=== PATIENT | male | born 1960 | race American Indian/Alaskan Native ===

== ENCOUNTER 2017-06-13 23:13 | Emergency (ER) | payer MEDICAID ==
[2017-06-13 23:22] VITALS: BP 131/70; PULSE 62; RESP 18; TEMP 97.6; O2SAT 98
[2017-06-14] MEDS ORDERED: Lidocaine Hydrochloride 5 ML INJ ONE (00:35)
[2017-06-14] MEDS ORDERED: Bacitracin 500 Units/gm Oint Foilpak UD ONE (01:14)
--- NOTE | 2017-06-14 01:16 | C.PDOC ---
History Of Present Illness 57 year old male who presents to the ER after he fell while going down the escalator and suffered two lacerations to the left knee. Denies head injury, weakness, or numbness. Time Seen by Provider: 06/13/17 23:26 Chief Complaint (Nursing): Lower Extremity Problem/Injury History Per: Patient History/Exam Limitations: no limitations Onset/Duration Of Symptoms: Hrs Current Symptoms Are (Timing): Still Present Recent travel outside of the [place]: No - Knee Description Of Injury: Laceration Past Medical History Reviewed: Historical Data, Nursing Documentation, Vital Signs Vital Signs: Last Vital Signs Temp 97.6 F 06/13/17 23:19 Pulse 62 06/13/17 23:19 Resp 18 06/13/17 23:19 BP 131/70 06/13/17 23:19 Pulse Ox 98 06/14/17 05:22 - Medical History PMH: No Chronic Diseases Surgical History: No Surg Hx Family History: States: Unknown Family Hx - Social History Hx Alcohol Use: No Hx Substance Use: No Review Of Systems Musculoskeletal: Positive for: Leg Pain Skin: Positive for: Other (Laceration) Neurological: Negative for: Weakness, Numbness Physical Exam - Physical Exam Appears: Non-toxic, No Acute Distress Skin: Warm, Dry Head: Atraumatic, Normacephalic Oral Mucosa: Moist Extremity: Normal ROM (x4), No Tenderness, No Deformity, No Swelling, Other ( 2cm stellate laceration to the left anterior knee. 3cm linear laceration to the left anterior knee. No effusion.) Pulses: Left Dorsalis Pedis: Normal, Right Dorsalis Pedis: Normal Neurological/Psych: Oriented x3, Normal Speech, Normal Cognition, Normal Motor, Normal Sensation ED Course And Treatment O2 Sat by Pulse Oximetry: 98 (Room air) Pulse Ox Interpretation: Normal Progress Note: Left knee x-ray ordered. Motrin administered. Patient tolerated laceration repair without difficulty; patient given proper wound care instructions and instructed to follow up for suture removal. Laceration - Laceration Repair Left knee(Stellate) Wound Length (In cm): 2 Description Of Wound: Stellate Wound Cleansed With: Sterile Saline Anesthesia: Lidocaine 1% Wound Examination: Irrigated With Saline, No FB With Wound Exploration Wound Closure: Suture (x6) Suture Technique And Material Used: Nylon (3-0) Wound Complexity: Simple Left knee(Linear) Wound Length (In cm): 3 Description Of Wound: Linear Wound Cleansed With: Sterile Saline Anesthesia: Lidocaine 1%, Lidocaine 2% Wound Examination: Irrigated With Saline Wound Closure: Suture (x6) Suture Technique And Material Used: Nylon (3-0) Wound Complexity: Simple (well tolerared by pt) Disposition Counseled Patient/Family Regarding: Diagnosis, Need For Followup, Rx Given - Disposition Disposition: HOME/ ROUTINE Disposition Time: 01:13 Condition: STABLE Additional Instructions: SUTURE REMOVAL IN 14 D Prescriptions: Bacitracin Ointment [Bacitracin] 30 gm TOP BID #1 tube Cephalexin [cephalexin] 500 mg PO QID #28 cap Ibuprofen [Motrin] 600 mg PO Q6H #20 tab Instructions: Care For Your Stitches (ED) Forms: [facility] (Welsh) - Clinical Impression Clinical Impression: Laceration of knee, left - Scribe Statement The provider has reviewed the documentation as recorded by the Scriblakia Ayon All medical record entries made by the Scribe were at my direction and personally dictated by me. I have reviewed the chart and agree that the record accurately reflects my personal performance of the history, physical exam, medical decision making, and the department course for this patient. I have also personally directed, reviewed, and agree with the discharge instructions and disposition.
--- NOTE | 2017-06-14 08:08 | RAD ---
PROCEDURE: Left Knee Radiographs. HISTORY: Pain. COMPARISON: None. FINDINGS: BONES: No evidence of acute fracture or dislocation. Well corticated small ossicles seen at the medial aspect of the distal left femur adjacent to the medial femoral condyle of uncertain etiology may represent calcified soft tissue. JOINTS: Mild osteoarthritic changes. JOINT EFFUSION: None. OTHER FINDINGS: None. IMPRESSION: No radiographic evidence of acute fracture or dislocation. Possible soft tissue calcification at the medial aspect of the knee adjacent to the medial femoral condyle. Mild osteoarthritic changes.
== END 2017-06-14 01:21 | disposition home or self-care (01) ==
LOC: C.ER 23:13
DX: S81.012A Laceration without foreign body, left knee, initial encounter (principal); W10.0XXA Fall (on)(from) escalator, initial encounter

== ENCOUNTER 2017-07-02 10:54 | Emergency (ER) | payer MEDICAID ==
[2017-07-02 11:00] VITALS: BP 127/83; PULSE 63; RESP 18; TEMP 97.4; O2SAT 99
[2017-07-02] MEDS ORDERED: Bacitracin 500 Units/gm Oint Foilpak UD ONE (11:34)
--- NOTE | 2017-07-02 11:37 | C.PDOC ---
History Of Present Illness 57yo male with no past medical history, presents to the ED for suture removal from his left kneecap. Patient reports he fell on and sustained an angular laceration on the dorsum of his left knee for which he received surgery. He denies any fever, chills, swelling or discharge from the suture site. Patient offers no other medical complaints. Time Seen by Provider: 07/02/17 11:23 Chief Complaint (Nursing): Suture/Staple Removal History Per: Patient History/Exam Limitations: no limitations Onset/Duration Of Symptoms: Days Ago Current Symptoms Are (Timing): Still Present Location Of Injury: Left: Knee Quality Of Symptoms: denies: Swollen, Draining Past Medical History Reviewed: Historical Data, Nursing Documentation, Vital Signs Vital Signs: Last Vital Signs Temp 97.4 F L 07/02/17 10:59 Pulse 63 07/02/17 10:59 Resp 18 07/02/17 10:59 BP 127/83 07/02/17 10:59 Pulse Ox 99 07/02/17 11:42 - Medical History PMH: No Chronic Diseases Surgical History: No Surg Hx Family History: States: No Known Family Hx, Unknown Family Hx - Social History Hx Alcohol Use: No Hx Substance Use: No Review Of Systems Constitutional: Negative for: Fever, Chills Musculoskeletal: Positive for: Other (healed lacertation on left knee, no swelling or discharge) Physical Exam - Physical Exam Appears: Non-toxic, No Acute Distress Extremity: Normal ROM, No Deformity, No Swelling, Other (well healed angular laceration on left knee with [address]; no swelling, discharge or signs of infection noted.) ED Course And Treatment O2 Sat by Pulse Oximetry: 99 (RA) Pulse Ox Interpretation: Normal Medical Decision Making Medical Decision Making: Impression: 57 yo male presents for suture removal Plan: -- 7 sutures removed from left knee without difficulty. Disposition - Disposition Referrals: Clinic,Med Surg [Primary Care Provider] - Disposition: HOME/ ROUTINE Disposition Time: 11:30 Condition: STABLE Instructions: Acute Wound Care (ED) Forms: General Discharge Instructions, [facility] (Czech) - Clinical Impression Clinical Impression: Removal of suture - Scribe Statement The provider has reviewed the documentation as recorded by the Alessandro Castaneda Provider Attestation All medical record entries made by the Alessandro were at my direction and personally dictated by me. I have reviewed the chart and agree that the record accurately reflects my personal performance of the history, physical exam, medical decision making, and the department course for this patient. I have also personally directed, reviewed, and agree with the discharge instructions and disposition.
--- NOTE | 2017-07-02 11:38 | C.PDOC ---
Time Seen by Provider: 07/02/17 11:23 Chief Complaint (Nursing): Suture/Staple Removal Past Medical History Vital Signs: Last Vital Signs Temp 97.4 F L 07/02/17 10:59 Pulse 63 07/02/17 10:59 Resp 18 07/02/17 10:59 BP 127/83 07/02/17 10:59 Pulse Ox 99 07/02/17 10:59 Family History: States: Unknown Family Hx - Social History Hx Alcohol Use: No Hx Substance Use: No ED Course And Treatment O2 Sat by Pulse Oximetry: 99 Disposition - Disposition Referrals: Clinic,Med Surg [Primary Care Provider] - Disposition: HOME/ ROUTINE Disposition Time: 11:33 Condition: STABLE Instructions: Acute Wound Care (ED) Forms: [facility] (New Zealander), General Discharge Instructions - Clinical Impression Clinical Impression: Removal of suture
== END 2017-07-02 11:47 | disposition home or self-care (01) ==
LOC: SUPCPDRO 10:54 → C.ER 10:54
DX: Z48.02 Encounter for removal of sutures (principal)